=== PATIENT | female | born 2000 | race Caucasian/White ===

== ENCOUNTER 2023-07-09 01:23 | Inpatient (IN) | payer BC, SELFPAY ==
[2023-07-09] VITALS (15 sets, daily range): BP systolic 86–120; BP diastolic 42–67; PULSE 91–125; RESP 16–25; TEMP 37.1–39.4; O2SAT 96–100; BMI 20.7; BMI 25.0
--- NOTE | ~2023-07-09 | CT_ITS ---
EXAMINATION: CT ANGIOGRAM OF THE CHEST WITH AND WITHOUT CONTRAST (CT PULMONARY ANGIOGRAM FOR PE) CLINICAL INFORMATION: Reason for Exam tachycardia, elevated ddimer chest pain COMPARISON: Same day chest radiograph TECHNIQUE: Prior to contrast administration, noncontrast localization images were obtained. Subsequently, multidetector volumetric imaging was performed from the thoracic inlet to below the diaphragms following the administration of 80 mL Omnipaque 350 intravenous contrast. No contrast reaction reported Sagittal, coronal, and MIP oblique sagittal reformatted images were obtained on the CT workstation, uploaded to PACS, and reviewed. This CT examination was performed using dose optimization techniques as appropriate, variously including the following: *Automated exposure control *Adjustment of mA and/or kV according to patient size (this includes techniques or standardized protocols for targeted exams where dose is matched to indication/reason for exam; i.e. extremities or head) *Use of iterative reconstruction technique Total exam dose-length product 233 mGy-cm FINDINGS: QUALITY OF STUDY/CONTRAST BOLUS: Satisfactory. PULMONARY ARTERIES: Main pulmonary arteries are not enlarged. There is a small intraluminal filling defect located at right lower lobe pulmonary artery branch point which is seen over multiple coronal images, 15:76-81, see bruner image 80. LUNGS: Trachea and bronchi are patent. Bibasilar atelectasis, left greater than right. No consolidation/air bronchograms or suspicious pulmonary nodules. PLEURA: No pleural effusion or pneumothorax. MEDIASTINUM: Unremarkable thyroid. Heart is not enlarged. No ventricular bowing nor contrast reflux into the inferior vena cava. CORONARY ARTERY CALCIFICATION: None visualized on this study. CHEST WALL/AXILLA: No axillary or internal mammary lymphadenopathy. OSSEOUS STRUCTURES: Pectus excavatum. UPPER ABDOMEN: Diffuse hypoattenuation to the liver parenchyma. CT/CT angio chest PE protocol IMPRESSION: Right lower lobe pulmonary arterial filling defect suspicious for small nonocclusive thrombus. Mild atelectasis. Hepatic steatosis. VTE: positive
--- NOTE | ~2023-07-09 | XR_ITS ---
EXAMINATION: XR CHEST CLINICAL INFORMATION: Fever COMPARISON: None available. TECHNIQUE: Frontal view of the chest was obtained. FINDINGS: No significant abnormality is noted involving the heart, lungs, mediastinum, bony thorax or soft tissues. XR/XR chest 1V IMPRESSION: Unremarkable examination.
--- NOTE | ~2023-07-09 | US_ITS ---
EXAMINATION: US VENOUS WITH DOPPLER UPPER EXTREMITY, left upper extremity CLINICAL INFORMATION: Edema swelling COMPARISON: None available. TECHNIQUE: Ultrasound of the upper extremity is performed using compression sonography and color and pulse Doppler flow with assessment of augmentation of flow. There is also imaging and Doppler assessment of the jugular and subclavian veins. Spectral analysis with color-flow imaging is performed. FINDINGS: Respiratory variation, normal compression, and augmented flow are noted throughout the upper extremity including the axillary, brachial, cubital, and radial and ulnar veins. There is normal flow in the internal jugular and subclavian veins. There is no visible deep or superficial thrombophlebitis. If the patient's symptoms progress, a followup ultrasound in 5 -7 days might be of value to exclude proximal propagation from a nonvisualized distal arm vein. US/US venous duplex UE LT IMPRESSION: No DVT demonstrated in the left upper extremity
--- NOTE | ~2023-07-09 | CT_ITS ---
EXAMINATION: CT HEAD WITHOUT CONTRAST CLINICAL INFORMATION: Headache status post fall. COMPARISON: No relevant prior imaging. TECHNIQUE: Contiguous axial imaging was performed from the skull base to vertex without intravenous administration of contrast. This CT examination was performed using dose optimization techniques as appropriate, variously including the following: *Automated exposure control *Adjustment of mA and/or kV according to patient size (this includes techniques or standardized protocols for targeted exams where dose is matched to indication/reason for exam; i.e. extremities or head) *Use of iterative reconstruction technique DLP: 659 mGy-cm FINDINGS: There is no acute intracranial hemorrhage or abnormal extra axial collection. No intracranial mass effect or midline shift. Lateral and third ventricles are normal. No hydrocephalus. Cristobal-white matter differentiation is preserved and there is no evidence of acute territorial infarct. The calvarium and skull base are intact. Mastoid air cells and middle ear cavities are well aerated. No active paranasal sinus disease. CT/CT head/brain wo IV con IMPRESSION: Normal CT scan of the head.
--- NOTE | ~2023-07-09 | US_ITS ---
EXAMINATION: US VENOUS ULTRASOUND WITH DOPPLER LOWER EXTREMITY, BILATERAL CLINICAL INFORMATION: Pulmonary embolism COMPARISON: None available. TECHNIQUE: Ultrasound of the deep veins is performed from the hip to the calf with compression sonography and color and pulse Doppler assessment. Spectral analysis with color-flow imaging is performed. FINDINGS: RIGHT: There is normal venous compression and respiratory variation and augmented flow. The visualized common femoral vein, superficial femoral vein, profunda femoral vein, popliteal vein, and the trifurcation region shows no evidence of deep venous thrombosis. There is no significant popliteal fossa cyst. LEFT: There is normal venous compression and respiratory variation and augmented flow. The visualized common femoral vein, superficial femoral vein, profunda femoral vein, popliteal vein, and the trifurcation region shows no evidence of deep venous thrombosis. There is no significant popliteal fossa cyst. If the patient's symptoms persist, followup ultrasound in 5 days 7 days might be of value to exclude proximal propagation from a non-visualized calf vein. US/US venous duplex LE BI IMPRESSION: No DVT demonstrated in the bilateral lower extremity.
[2023-07-09 02:10] LABS: Basophils Percent Auto 0.2 % (0-2); Hemoglobin 12.4 g/dl (12.0-16.0); Imm Gran Abs Auto 0.03 X10*3/uL (0.00-0.03); Imm Gran Pct Auto 0.3 % (0.0-0.4); Lymphocytes Absolute Auto 0.9 X10*3/uL (1.2-4.9); MANUAL DIFF FLAG NO; Mean Corpuscular HGB Conc 33.5 g/dl (31.0-35.0); Mean Corpuscular Hemoglobin 29.5 pg (27.0-33.0); Mean Corpuscular Volume 88.1 fL (80.0-98.0); Mean Platelet Volume 11.1 fL (9.4-12.3); Monocytes Absolute Auto 0.9 X10*3/uL (0.1-1.2); Monocytes Percent Auto 8.3 % (2-11); Neutrophils Absolute Auto 8.8 x10*3/uL (2.0-8.3); Neutrophils Percent Auto 83.2 % (45-73); Platelet Count 174 X10*3/uL (160-400); White Blood Count 10.6 X10*3/uL (4.8-10.8)
[2023-07-09 02:27] LABS: Alanine Aminotransferase 17 U/L (0-31); Alkaline Phosphatase 69 U/L (39-117); Anion Gap 11 (12-20); Aspartate Amino Transferase 13 U/L (5-31); Bilirubin Total 0.6 mg/dL (0.0-1.0); Blood Urea Nitrogen 6 mg/dL (9-16); Calcium 8.3 mg/dL (8.4-10.2); Carbon Dioxide 23 mmol/L (22-29); Chloride 105 mmol/L (96-108); Creatinine Clr Calc Pharmacy 109.7; Estimated Glomerular Filt Rate > 60; Glucose Random 137 mg/dL (60-115); Potassium 3.6 mmol/L (3.3-5.1); Sodium 135 mmol/L (135-145); Total Protein 6.6 g/dL (6.5-8.0)
[2023-07-09 02:32] LABS: COVID-19 Test Negative (Negative); IDNOW Serial# 08D9AD1C; IDNOW Serial# 152EDE1D; Influenza A Negative (Negative); Influenza B2 Negative (Negative)
--- NOTE | 2023-07-09 03:10 | ED.GENADULT ---
HPI - General Adult General Chief complaint: Fall Stated complaint: DIZZINESS, NAUSEA, HEADACHE Time Seen by Provider: 07/09/23 02:07 Source: patient Mode of arrival: ambulatory Limitations: no limitations History of Present Illness HPI narrative: Patient's history of familial Mediterranean fever been having fever body aches for last 2 days not eating or drinking much was feeling dizzy getting into the bed fell hitting her head against a wall with nausea no vomiting reporting pain to the head 8 Related Data Allergies Allergy/AdvReac Type Severity Reaction Status Date / Time acetaminophen AdvReac Unknown Verified 07/09/23 01:45 Review of Systems Review of Systems: Yes all other systems are reviewed and are negative [facility] Past Medical History Medical History (Updated 07/09/23 @ 07:17 by Wicho Pedro MD) Familial Mediterranean fever Social History Social History Smoked in Last 30 Days: No Use of substances other than those prescribed or required for medical reasons: No Advance Directives: No Advance Directives Information Provided: No Patient : No Physical Exam ED Vital Signs: Vital Signs - 24 hr 07/09/23 01:35 07/09/23 01:56 07/09/23 04:28 Temperature 100.7 F H 101.1 F H Pulse Rate 122 H 118 H Respiratory Rate 19 20 Blood Pressure 116/67 92/51 L Pulse Oximetry 97 96 Oxygen Delivery Method Room Air Room Air 07/09/23 06:12 07/09/23 06:13 07/09/23 06:13 Temperature Pulse Rate 102 H 122 H 125 H Respiratory Rate Blood Pressure 91/46 L 102/61 88/54 L Pulse Oximetry Oxygen Delivery Method BMI result Body Mass Index 20.7 Appearance: Alert. Oriented X3. No acute distress. Febrile Eyes: No pallor or icterus ENT: Pharynx normal. Oral Mucosa moist Neck: Normal inspection. Neck supple. CVS: Normal heart rate and rhythm. Pulses normal. Respiratory: No respiratory distress. Equal air entry bilateral, no wheezing/rales/rhonchi Abdomen: Soft and nontender. Bowel sounds are present, Skin: Skin warm and dry. Normal skin color. Normal skin turgor. Extremities: No lower extremity edema. No calf tenderness Neuro: Oriented X 3. No motor deficit. Medications Administered Discontinued Medications Generic Name Dose Route Start Last Admin Trade Name Freq PRN Reason Stop Dose Admin Sodium Chloride 1,000 mls @ 999 mls/hr 07/09/23 03:20 07/09/23 05:43 Ns IV 07/09/23 04:20 Infused .Q1H1M ONE Infusion Sodium Chloride 1,000 mls @ 999 mls/hr 07/09/23 06:03 07/09/23 06:14 Ns IV 07/09/23 07:03 999 mls/hr .Q1H1M ONE Administration Ketorolac Tromethamine 30 mg 07/09/23 03:20 07/09/23 04:01 Ketorolac Tromethamine 30 Mg/Ml Vial IVPUSH 07/09/23 03:21 30 mg ONCE ONE Administration Ondansetron HCl 4 mg 07/09/23 03:21 07/09/23 04:02 Ondansetron Hcl 4 Mg/2 Ml Vial IVPUSH 07/09/23 03:22 4 mg ONCE ONE Administration Medical Decision Making Medical Decision Making [facility] Narrative: Patient with familial Mediterranean fever with orthostatic hypotension with near syncope will continue to give IV fluids recheck orthostatics will discharge once better Differential Diagnosis Differential Diagnoses: The differential diagnosis associated with the presentation includes Vasovagal syncope/orthostatic hypotension Lab Data [facility] Lab Attestation statement: I reviewed the patient's lab results. 07/09/23 02:02 07/09/23 02:02 Labs: Lab Results 07/09/23 Range/Units 02:02 WBC 10.6 (4.8-10.8) X10*3/uL RBC 4.20 (4.20-5.50) X10*6/uL Hgb 12.4 (12.0-16.0) g/dl Hct 37.0 (37.0-47.0) % MCV 88.1 (80.0-98.0) fL MCH 29.5 (27.0-33.0) pg MCHC 33.5 (31.0-35.0) g/dl RDW 14.0 (11.0-16.0) % Plt Count 174 (160-400) X10*3/uL MPV 11.1 (9.4-12.3) fL Immature Gran % (Auto) 0.3 (0.0-0.4) % Neut % (Auto) 83.2 H (45-73) % Lymph % (Auto) 8.0 L (20-40) % [place] % (Auto) 8.3 (2-11) % Eos % (Auto) 0.0 (0-4) % Baso % (Auto) 0.2 (0-2) % Lymph # (Auto) 0.9 L (1.2-4.9) X10*3/uL [place] # (Auto) 0.9 (0.1-1.2) X10*3/uL Eos # (Auto) 0.0 (0.0-0.4) X10*3/uL Baso # (Auto) 0.0 (0.0-0.2) X10*3/uL Abs Immat Gran (auto) 0.03 (0.00-0.03) X10*3/uL Absolute Neuts (auto) 8.8 H (2.0-8.3) x10*3/uL Absolute Nucleated RBC 0.000 (0.0-0.012) X10*3/uL Nucleated RBC % (auto) 0.0 (0.0-0.2) /100WBC Sodium 135 (135-145) mmol/L Potassium 3.6 (3.3-5.1) mmol/L Chloride 105 (96-108) mmol/L Carbon Dioxide 23 (22-29) mmol/L Anion Gap 11 L (12-20) BUN 6 L (9-16) mg/dL Creatinine 0.82 (0.5-1.4) mg/dL Estim Creat Clear Calc 109.7 Estimated GFR > 60 Random Glucose 137 H (60-115) mg/dL Calcium 8.3 L (8.4-10.2) mg/dL Total Bilirubin 0.6 (0.0-1.0) mg/dL AST 13 (5-31) U/L ALT 17 (0-31) U/L Alkaline Phosphatase 69 (39-117) U/L Total Protein 6.6 (6.5-8.0) g/dL Albumin 4.0 (3.5-5.0) g/dL COVID-19 ([facility]IN) Negative (Negative) COVID-19 Clin Com See Note Influenza Type A (EMILY) Negative (Negative) Influenza Type B (EMILY) Negative (Negative) Influenza A & B Note See Note Discharge Plan Discharge Clinical Impression: Near syncope, Familial Mediterranean fever Patient Disposition: Still a Patient
[2023-07-09] MEDS: 0.9 % Sodium Chloride 1,000 ML 999 ML IV ×3 (04:01→07:31)
[2023-07-09] MEDS: Ketorolac Tromethamine 30 MG/ML VIAL IVPUSH (04:01)
[2023-07-09] MEDS: ondansetron HCL 4 MG/2 ML VIAL IVPUSH (04:02)
--- NOTE | 2023-07-09 07:29 | PC.NURSE ---
this RN resumed care of pt a this time. a&ox4. pt sinus tachy on the cardiac monitor technician. hypotensive. low grade temp of 99.2 orally. pt verbalizing 5/10 posterior headache at this time. pt also c/o lightheadedness/dizziness. denies change in vision. pt hot to the touch and diaphoretic. c/o chills. no sob/wob noted. respirations even and unlabored. IVF continues to infuse at this time. pt aware of urine sample that is needed. plan of care ongoing. call castillo placed within reach.
--- NOTE | 2023-07-09 07:38 | ECG_ITS ---
Test Reason : tachy Blood Pressure : / mmHG Vent. Rate : 126 BPM Atrial Rate : 126 BPM P-R Int : 088 ms QRS Dur : 064 ms QT Int : 288 ms P-R-T Axes : 045 065 -46 degrees QTc Int : 417 ms Sinus tachycardia with short MI Low voltage QRS T wave abnormality, consider anterior ischemia Abnormal ECG No previous ECGs available Referred By: Shanell Bowen Electronically Signed By:RANI BLANCHARD
[2023-07-09] MEDS: Morphine Sulfate 2 MG/ML CARTRIDGE IVPUSH (09:08)
--- NOTE | 2023-07-09 09:09 | PC.NURSE ---
pt still verbalizing headache and feeling lightheaded/dizzy w/ movement. pt remains sinus tachy on the monitor. provider aware. labs/cultures obtained by this RN/tech. medication administered per provider order. pt waiting to go to CT at this time. plan of care ongoing. call castillo placed within reach.
--- NOTE | 2023-07-09 09:16 | PC.NURSE ---
xray bedside at this time.
[2023-07-09 09:23] LABS: D Dimer High Sensitivity 315 NG/ML
[2023-07-09 09:33] LABS: Troponin-I High Sensitivity 6.6 ng/L (<3.5-17.0)
[2023-07-09 09:47] LABS: Procalcitonin 0.17 ng/mL
--- NOTE | 2023-07-09 10:14 | PC.NURSE ---
pt verbalizing pain level decreased post medication administration. pt remains sinus tachy on the media monitor. pt resting in no apparent distress w/ the lights dimmed waiting to go to CT at this time. call castillo placed within reach.
[2023-07-09 10:23] LABS: HCG Quantitative < 2 mIU/mL
[2023-07-09 10:55] LABS: Appearance Urine Clear; Color Urine Yellow; Glucose Urine UA Negative (Negative); Leukocyte Esterase Urine Small (1+) (Negative); Nitrite Urine Negative (Negative); PH 5.5 (5.0-9.0); UMIC TRIGGER UACC YES; Urine Blood Negative (Negative); Urine Ketones 15 mg/dL (Negative); Urine Protein Negative (Neg-Trace)
[2023-07-09 10:56] LABS: UPreg QC Valid YES; Urine Pregnancy NEGATIVE (NEGATIVE)
[2023-07-09 11:06] LABS: Bacteria Urine Trace (None Seen); Hyaline Casts Urine 0-2 /LPF (0-2); RBC Urine 0-2 /HPF (0-2); Squamous Epithelial Cell Urine 0-2 /HPF (0-2); UACC Culture Trigger YES; WBC Urine 0-5 /HPF (0-5)
[2023-07-09] MEDS: iohexoL 350 MG/ML 100 ML INFUS..BTL IV (11:06)
[2023-07-09] MEDS: Enoxaparin Sodium 80 MG/0.8 ML SYRINGE SUBCUT (12:37)
[2023-07-09 12:57] LABS: INTERNATIONAL NORM RATIO 1.4 (0.9-1.1); Prothrombin Time 16.7 SEC (11.1-13.3)
[2023-07-09 13:00] LABS: Partial Thromboplastin Time 32.1 SEC (26.0-36.8)
[2023-07-09] MEDS: Ibuprofen 800 MG TABLET PO (13:01)
--- NOTE | 2023-07-09 13:02 | PC.NURSE ---
pt aware of CT results at this time. pt remaining sinus tachy on the monitoring and evaluation advisor. updated oral temp displaying 103 - ibuprofen administered per provider order. effectiveness pending. pt speaking w/ hospitalist at this time. plan of care ongoing.
[2023-07-09 13:17] LABS: C Reactive Protein 4.31 mg/dL (< or = 0.50)
[2023-07-09 13:26] LABS: Erythrocyte Sedimentation Rate 12 MM/HR (0-20)
--- NOTE | 2023-07-09 13:48 | PHA.MEDREC ---
Pharmacy Consult ? Medication Reconciliation Pharmacy has completed the medication reconciliation. Patient reported meds. Cindy Ortez, SamD
--- NOTE | 2023-07-09 15:18 | PM.IMHP ---
History of Present Illness Date of Service: 07/09/23 Attending physician on admission: [facility] Chief Complaint: fall, head strike, dizziness 22 year old female with history of familial Mediterranean fever, celiac disease, anxiety, ADHD presents to the ED earlier today from [facility] where she has been studying due to syncope with head strike. The patient states that she was diagnosed with familial Mediterranean fever at age 8 and had been well-controlled on colchicine until about 2 cespedes ago when she began experiencing monthly flare-ups of FMF symptoms. She states she will have fevers up to 103 with associated myalgias (diffuse but most pronounced in abd, legs, low back, and neck), sharp occipital headaches. She follows with Dr. Hudson at [facility] and reports colchine was increased to 0.6mg TID about 8 months ago without improvement in symptoms. No further medication changes made. She states during these episodes will experience positional lightheadedness and has sustained several falls, most recently very early this morning while in her dorm. Endorses head strike but no LOC. No associated visual changes, sob, palpitations, chest pain, diarrhea, n/v, urinary symptoms, cough, sore throat, congestion, rigors. No sick contacts. No history of seizures. Since arrival, pt has been intermittently febrile to 103 with some improvement with ibuprofen, tachycardic to the 120s. Positive for orthostatic hypotension. No leukocytosis. Renal function normal, lytes normal. Lactic acid 1.0. CRP 4.31, ESR 12. PT 16.7, INR 1.4, DDimer 315. PCT 0.17, beta hcg neg. Troponin below detectable limit. UA unremarkable. Negative for COVID-19, influenza. Full viral respiratory panel pending. CXR unremarkable. Head CT negative for any acute intracranial abnormality. CTA chest shows right lower lobe pulmonary arterial filling defect suspicious for small nonocclusive thrombus. There is also mild atelectasis and hepatic steatosis. EKG shows sinus tachycardia, rate 126 with T-wave inversions noted in V3-V5. No ST/depressions. In the ED, given ketorolac and ibuprofen for fevers, IV morphine, 4 mg ondansetron, IV NS, and 80 mg enoxaparin. NO recent travel or OCPs Review of Systems Review of Systems: General: No malaise, unintentional weight loss. +fevers HEENT: No blurred vision, diplopia. No sore throat, nasal congestion, rhinorrhea, sinus pain, ear pain Cardiovascular: No chest pain, palpitations, or leg edema. +lightheadedness Respiratory: No shortness of breath, wheezing, cough GI: No abdominal pain, nausea, vomiting, diarrhea, constipation, melena, hematochezia : No dysuria, hematuria, increased urinary frequency, decreased urinary output MSK: No back pain. +myalgia Neuro: No headaches, weakness, paresthesias Skin: No rashes or lesions [facility] Medical History (Updated 07/10/23 @ 14:14 by Russel Sultana MD) Anxiety Familial Mediterranean fever Social History Household Members: Other Housing: House Patient Tobacco Use Status: Never used Tobacco Smoked in Last 30 Days: No Use of substances other than those prescribed or required for medical reasons: Yes Substance Use Type: Marijuana Substance Use Frequency: Occasionally Last Used Substance Other:: 07/03/23 Currently Displaying Signs/Symptoms of Drug Intoxication Withdrawal: No Any prior treatment program specific to substance use: No Have you been hit, kicked, punched, or otherwise hurt by someone within the past year? If so, by whom?: No Do you feel safe in your current relationship?: Yes Is there a partner from a previous relationship who is making you feel unsafe now?: No Are you made to feel afraid or neglected: No Advance Directives: No Advance Directives Information Provided: No Do you have thoughts of harming others: None Do you have a plan to hurt others: No Plan Recently lost weight without trying: No Nutrition Risks: No Nutritional Risk Patient : No : No Poor oral hygiene: No service: No Meds Allergies Allergy/AdvReac Type Severity Reaction Status Date / Time acetaminophen AdvReac Unknown Verified 07/09/23 01:45 Home Medications Medication Instructions Recorded Confirmed Last Taken Type Probiotic 1 cap PO DAILY@1130 07/09/23 07/09/23 07/08/23 History colchicine 0.6 mg tablet 0.3 mg PO BID@0000,1800 07/09/23 07/09/23 07/08/23 History colchicine 0.6 mg tablet 0.6 mg PO DAILY@1130 07/09/23 07/09/23 07/08/23 History dextroamphetamine-amphetamine 10 1 tab PO DAILY@1130 07/09/23 07/09/23 07/08/23 History mg tablet fluoxetine 10 mg tablet 15 mg PO DAILY@112907/09/23 07/09/23 07/08/23 History multivitamin 1 tab PO DAILY@1130 07/09/23 07/09/23 07/08/23 History Physical Exam Vital Signs and Narrative: Vital Signs: Last Vital Signs Temp 99.2 F 07/09/23 15:05 Pulse 106 H 07/09/23 15:05 Resp 16 07/09/23 15:05 BP 102/55 L 07/09/23 12:24 Pulse Ox 97 07/09/23 15:05 O2 Del Method Room Air 07/09/23 15:05 BMI result Body Mass Index 25.0 Constitutional - Awake and Alert, No apparent distress Eyes - PERRLA, EOMI Cardiovascular - S1S2, RRR, No edema Respiratory - Normal lung expansion, Normal respiratory effort, No respiratory distress, CTA bilaterally Gastrointestinal - mild diffuse ttp, ND; +BS; No rebound or guarding Extremities - no calf tenderness bilaterally, no swelling Skin - Warm/Dry Neurological - Alert & oriented x3, CN II-XII in tact, 5/5 strength BUE and BLE, mildly tremulous Psychological - Appropriate affect Results Labs 07/10/23 05:14 07/10/23 05:14 Labs: Laboratory Results - last 24 hr 07/09/23 07/09/23 07/09/23 02:02 09:02 09:04 MCV 88.1 MCH 29.5 MCHC 33.5 RDW 14.0 Plt Count 174 MPV 11.1 Immature Gran % (Auto) 0.3 Neut % (Auto) 83.2 H Lymph % (Auto) 8.0 L [place] % (Auto) 8.3 Eos % (Auto) 0.0 Baso % (Auto) 0.2 Lymph # (Auto) 0.9 L [place] # (Auto) 0.9 Eos # (Auto) 0.0 Baso # (Auto) 0.0 Abs Immat Gran (auto) 0.03 Absolute Neuts (auto) 8.8 H Absolute Nucleated RBC 0.000 Nucleated RBC % (auto) 0.0 ESR 12 PT INR APTT D-Dimer High Sensitivty 315 Anion Gap 11 L Estim Creat Clear Calc 109.7 Estimated GFR > 60 Random Glucose 137 H Lactic Acid 1.0 Calcium 8.3 L Total Bilirubin 0.6 AST 13 ALT 17 Alkaline Phosphatase 69 Troponin I High Sens 6.6 C-Reactive Protein 4.31 H Total Protein 6.6 Albumin 4.0 Procalcitonin 0.17 Beta HCG, Quant < 2 Urine Color Urine Appearance Urine pH Ur Specific [place] Urine Protein Urine Glucose (UA) Urine Ketones Urine Blood Urine Nitrite Ur Leukocyte Esterase Urine RBC Urine WBC Ur Squamous Epith Cells Urine Bacteria Hyaline Casts Urine Test COVID-19 ([facility]ERV[facility]) Negative COVID-19 Clin Com See Note Influenza Type A (EMILY) Negative Influenza Type B (EMILY) Negative Influenza A & B Note See Note 07/09/23 07/09/23 10:39 12:38 MCV MCH MCHC RDW Plt Count MPV Immature Gran % (Auto) Neut % (Auto) Lymph % (Auto) [place] % (Auto) Eos % (Auto) Baso % (Auto) Lymph # (Auto) [place] # (Auto) Eos # (Auto) Baso # (Auto) Abs Immat Gran (auto) Absolute Neuts (auto) Absolute Nucleated RBC Nucleated RBC % (auto) ESR PT 16.7 H INR 1.4 H APTT 32.1 D-Dimer High Sensitivty Anion Gap Estim Creat Clear Calc Estimated GFR Random Glucose Lactic Acid Calcium Total Bilirubin AST ALT Alkaline Phosphatase Troponin I High Sens C-Reactive Protein Total Protein Albumin Procalcitonin Beta HCG, Quant Urine Color Yellow Urine Appearance Clear Urine pH 5.5 Ur Specific [place] 1.010 Urine Protein Negative Urine Glucose (UA) Negative Urine Ketones 15 Urine Blood Negative Urine Nitrite Negative Ur Leukocyte Esterase Small (1+) H Urine RBC 0-2 Urine WBC 0-5 Ur Squamous Epith Cells 0-2 Urine Bacteria Trace Hyaline Casts 0-2 Urine Test NEGATIVE COVID-19 ([facility]) COVID-19 Clin Com Influenza Type A (EMILY) Influenza Type B (EMILY) Influenza A & B Note Imaging Radiologist's Impressions: Impressions Chest X-Ray 07/09/23 09:20 IMPRESSION: Unremarkable examination. Head CT 07/09/23 11:11 IMPRESSION: Normal CT scan of the head. Chest CTA 07/09/23 11:12 IMPRESSION: Right lower lobe pulmonary arterial filling defect suspicious for small nonocclusive thrombus. Mild atelectasis. Hepatic steatosis. VTE: positive Assessment and Plan (1) Pulmonary embolism: Qualifiers: Acute cor pulmonale presence: with acute cor pulmonale Chronicity: acute Pulmonary embolism type: unspecified Qualified Code(s): I26.09 - Other pulmonary embolism with acute cor pulmonale Status: Acute (2) Syncope due to orthostatic hypotension: Status: Acute (3) Familial Mediterranean fever: Status: Acute Plan 22 year old female with history of familial Mediterranean fever, celiac disease, anxiety, ADHD presents to the ED earlier today from [employer] where she has been studying due to syncope with head strike. The patient states that she was diagnosed with familial Mediterranean fever at age 8 and had been well-controlled on colchicine until about 2 cespedes ago when she began experiencing monthly flare-ups of FMF symptoms. She will be admitted for further management of Familial Mediterranean Fever flare with associated orthostatic syncope incidentally foung to have nonocculsive PE #Orthostatic syncope -related to familial Mediterranean fever flare -continue IVF -repeat orthostatics am -admit to med/tele #Familial Mediterranean Fever- acute flare -disucssed with Dr. Abbasi and RN at [facility] (follows with ) -Steroid taper: IV solumedrol/prednisone 60mg x3 days. If remains febrile, reach out to rheumatology/immunology (Dr. Abbasi) for further recommendations), otherwise taper prednisone -Continue colchicine -Outpt follow up with rheum/immunology #Right lower lobe pulmonary embolus -non-occlusive. No recent travel, no ocps -[id number] lovenox in ed. Initiate eliquis 10mg daily x 7 days, then 5mg bid -hematology consult #Mood disorder -continue home meds dvt prophyalxis- eliquis full code pt requires inpt stay at least 2 midnights due to orthostatic syncope related to FMF fevers/dehydration requiring IVF, close monitoring of vital signs Quality Stroke Does the patient have a stroke diagnosis?: No VTE Prior VTE?: No VTE Risk Level:: Medical - moderate - high VTE Device Contraindication: Treatment Not Tolerated VTE Drug Contraindication: N/A - Med Ordered
[2023-07-09 15:38] LABS: Adenovirus PCR Not Detected (Not Detect.); Bordetella parapertussis PCR Not Detected (Not Detect.); Bordetella pertussis PCR Not Detected (Not Detect.); Chlamydia pneumoniae PCR Not Detected (Not Detect.); Coronavirus 229E PCR Not Detected (Not Detect.); Coronavirus HKU1 PCR Not Detected (Not Detect.); Coronavirus NL63 PCR Not Detected (Not Detect.); Coronavirus OC43 PCR Not Detected (Not Detect.); Human metapneumovirus PCR Not Detected (Not Detect.); Influenza A PCR Not Detected (Not Detect.); Influenza B PCR Not Detected (Not Detect.); Mycoplasma pneumoniae PCR Not Detected (Not Detect.); Parainfluenza 1 PCR Not Detected (Not Detect.); Parainfluenza 2 PCR Not Detected (Not Detect.); Parainfluenza 3 PCR Not Detected (Not Detect.); Parainfluenza 4 PCR Not Detected (Not Detect.); RSV PCR Not Detected (Not Detect.); Rhino/Enterovirus PCR Not Detected (Not Detect.)
[2023-07-09 15:46] LABS: SARS-CoV-2 PCR Not Detected (Not Detect.)
[2023-07-09] MEDS: 0.9 % Sodium Chloride 1,000 ML 100 ML IVCONT ×2 (16:56→21:04)
[2023-07-09] MEDS: 0.9 % Sodium Chloride Flush 3 ML SYRINGE IVFLUSH (16:58)
[2023-07-09] MEDS: methylPREDNISolone Sod Succ 125 MG/2 ML VIAL 60 MG IVPUSH (17:00)
[2023-07-09] MEDS: Omeprazole 40 MG CAPSULE.DR PO (17:00)
--- NOTE | 2023-07-09 18:11 | PC.NURSE ---
vss and up to date aside from being hypotensive. admitting provider notified aware. NS @ 100mls/hr dc'd by admitting provider. IVF wide open as bolus at this time. will reassess BP post IVF infusion. pt denies headache. has no complaints at this time. respirations remain even and unlabored. plan of care ongoing. call castillo placed within reach.
[2023-07-09] MEDS: Colchicine 0.6 MG TABLET 0.3 MG PO (18:14)
--- NOTE | 2023-07-09 20:24 | PC.NURSE ---
IV bolus infused bp as documented. Trista VELAZCO aware; ok with bp as pt asymptomatic. pt axox4 ambulatory with steady gait. pt denies cp/sob/dizziness/n/v/d. NSR on monitor.
[2023-07-09] MEDS: Apixaban 5 MG TABLET 10 MG PO (21:03)
--- NOTE | 2023-07-09 21:08 | PC.NURSE ---
pt sitting up in bed speaking full clear sentences. nad. pt tolerated po eliquis with water. mom at bedside. call castillo within reach.
[2023-07-10] VITALS (11 sets, daily range): BP systolic 89–114; BP diastolic 47–72; PULSE 60–88; RESP 16–20; TEMP 36–37.1; O2SAT 96–99; BMI 22.9
[2023-07-10] MEDS: Colchicine 0.6 MG TABLET 0.3 MG PO ×3 (00:01→23:08)
[2023-07-10] MEDS: methylPREDNISolone Sod Succ 125 MG/2 ML VIAL 60 MG IVPUSH ×2 (05:11→17:35)
[2023-07-10] MEDS: Omeprazole 40 MG CAPSULE.DR PO (05:11)
[2023-07-10 05:55] LABS: MANUAL DIFF FLAG NO
[2023-07-10 06:00] LABS: Hematocrit 33.8 % (37.0-47.0); Hemoglobin 11.2 g/dl (12.0-16.0); Imm Gran Abs Auto 0.05 X10*3/uL (0.00-0.03); Imm Gran Pct Auto 0.6 % (0.0-0.4); Lymphocytes Absolute Auto 0.6 X10*3/uL (1.2-4.9); Lymphocytes Percent Auto 7.5 % (20-40); Mean Corpuscular HGB Conc 33.1 g/dl (31.0-35.0); Mean Corpuscular Hemoglobin 29.4 pg (27.0-33.0); Mean Corpuscular Volume 88.7 fL (80.0-98.0); Mean Platelet Volume 12.4 fL (9.4-12.3); Monocytes Absolute Auto 0.3 X10*3/uL (0.1-1.2); Monocytes Percent Auto 3.8 % (2-11); Neutrophils Absolute Auto 7.2 x10*3/uL (2.0-8.3); Neutrophils Percent Auto 88.1 % (45-73); Platelet Count 135 X10*3/uL (160-400); Red Blood Count 3.81 X10*6/uL (4.20-5.50); Red Cell Distribution Width 14.5 % (11.0-16.0); White Blood Count 8.2 X10*3/uL (4.8-10.8)
[2023-07-10 06:13] LABS: Anion Gap 9 (12-20); Blood Urea Nitrogen 4 mg/dL (9-16); Calcium 8.1 mg/dL (8.4-10.2); Carbon Dioxide 21 mmol/L (22-29); Chloride 114 mmol/L (96-108); Creatinine Clr Calc Pharmacy 137.9; Estimated Glomerular Filt Rate > 60; Glucose Random 173 mg/dL (60-115); Potassium 3.6 mmol/L (3.3-5.1); Sodium 140 mmol/L (135-145)
--- NOTE | 2023-07-10 07:22 | PC.NURSE ---
pt is alert and oriented, skin slightly pale and clammy, respirations even and unlabored, ls clear, pt denies abd pain but does have a headache 2/10, pt denies dizziness and sob, ns on the monitor and orth static vs performed pt does reports that she is vegetarian and has celiac disease
[2023-07-10] MEDS: Apixaban 5 MG TABLET 10 MG PO ×2 (08:40→20:02)
--- NOTE | 2023-07-10 09:13 | MHC.CM.PN ---
CM spoke with Patient @ [phone]. Patient is presently living in her dorm at [employer] but typically lives in a house with her Parents. Home/self care is the goal and CM has initiated and will follow for dc planning. PCP is Dr. Simone Mohamud @ [phone]. Patient's Mother will transport Patient back to her dorm at time of dc.
[2023-07-10] MEDS: 0.9 % Sodium Chloride 1,000 ML 100 ML IVCONT (09:16)
[2023-07-10] MEDS: Colchicine 0.6 MG TABLET PO (11:45)
[2023-07-10] MEDS: Amphetamine Mixed Salts 10 MG TABLET PO (11:45)
[2023-07-10 12:47] LABS: INTERNATIONAL NORM RATIO 1.9 (0.9-1.1); Prothrombin Time 22.7 SEC (11.1-13.3)
[2023-07-10] MEDS: FLUoxetine HCl Oral Solution 20 MG/5 ML SOLUTION 15 MG PO (13:04)
--- NOTE | 2023-07-10 14:08 | P.CNHO_ITS ---
Subjective - Subjective Chief complaint: CONSULT FOR: PULMONARY EMBOLISM. Patient: new to practice Consult date: 07/10/23 Requesting Physician: [facility]. Primary Care Provider: Nonstaff Physician Medical Summary: DIAGNOSIS: Pulmonary embolism. HPI - Consult Narrative Reason for consult: Consult for: Pulmonary embolism. Narrative: Rebekah Roger is a 22 year old lady, referred by Dr. Wills, on account of pulmonary embolism. She has a history of familial Mediterranean fever, celiac disease, anxiety, ADHD presented to the ED yesterday from [employer] [facility] where she has been studying, due to syncope with head strike. The patient states that she was diagnosed with familial Mediterranean fever at age 8 and had been well-controlled on colchicine until about 2 cespedes ago when she began experiencing monthly flare-ups of FMF symptoms. She states she will have fevers up to 103 with associated myalgias (diffuse but most pronounced in abd, legs, low back, and neck), sharp occipital headaches. She follows with Dr. Hudson at [facility] and reports colchine was increased to 0.6mg TID about 8 months ago without improvement in symptoms. No further medication changes made. She states during these episodes will experience positional lightheadedness and has sustained several falls, most recently very early yesterday morning while in her dorm. She tells me she had not eaten much the day before. She lost her balance and hit her head. Subsequently she was stunned. She had nausea and dizziness. She was not walking right. She called her school nurse who advised her to call the ambulance. Endorses head strike but no LOC. No associated visual changes, sob, palpitations, chest pain, diarrhea, n/v, urinary symptoms, cough, sore throat, congestion, rigors. No sick contacts. No history of seizures. Since arrival, she has been intermittently febrile to 103 with some improvement with ibuprofen, tachycardic to the 120s. Positive for orthostatic hypotension. DATA BASE: No leukocytosis. Renal function normal, lytes normal. Lactic acid 1.0. CRP 4.31, ESR 12. PT 16.7, INR 1.4, DDimer 315. PCT 0.17, beta hcg neg. Troponin below detectable limit. UA unremarkable. Negative for COVID-19, influenza. Full viral respiratory panel pending. CXR unremarkable. Head CT negative for any acute intracranial abnormality. CTA chest shows right lower lobe pulmonary arterial filling defect suspicious for small nonocclusive thrombus. There is also mild atelectasis and hepatic steatosis. EKG shows sinus tachycardia, rate 126 with T-wave inversions noted in V3-V5. No ST/depressions. In the ED, given ketorolac and ibuprofen for fevers, IV morphine, 4 mg ondansetron, IV NS, and 80 mg enoxaparin. NO recent travel or OCPs Review of Systems 2 Review of Systems: General: No malaise, unintentional weight loss. +fevers HEENT: No blurred vision, diplopia. No sore throat, nasal congestion, rhinorrhea, sinus pain, ear pain Cardiovascular: No chest pain, palpitations, or leg edema. +lightheadedness Respiratory: No shortness of breath, wheezing, cough GI: No abdominal pain, nausea, vomiting, diarrhea, constipation, melena, hematochezia : No dysuria, hematuria, increased urinary frequency, decreased urinary output MSK: No back pain. +myalgia Neuro: No headaches, weakness, paresthesias Skin: No rashes or lesions PMFSH Medical History: Anxiety Familial Mediterranean fever: She got it transmitted through her father who is from [place]. She developed onset of symptoms at the age of 3 months however it was diagnosed when she was 8. Since then she initially had cyclic symptoms once a month. She was then started on colchicine and symptoms abated. However they recurred over the past couple of years. She has had monthly episodes since then. Social History Smoked in Last 30 Days: No Use of substances other than those prescribed or required for medical reasons: No Advance Directives: No Advance Directives Information Provided: No Patient : No She is a senior at [employer]. She is graduating in September. She denies smoking cigarettes but smoked pot 3 times. She tried edible once and that triggered in attack. Occasional alcohol intake. Review of Systems - Constitutional Reports system reviewed and no additional complaints, except as documented - Eyes Reports system reviewed and no additional complaints, except as documented - ENT Reports system reviewed and no additional complaints, except as documented - Cardiovascular Reports system reviewed and no additional complaints, except as documented - Respiratory Reports no additional respiratory complaints - Gastrointestinal Reports system reviewed and no additional complaints, except as documented - Genitourinary Reports no additional female genitourinary complaints - Musculoskeletal Reports system reviewed and no additional complaints, except as documented - Integumentary/Breasts Skin/Breast: Reports no additional skin complaints - Neurologic Reports system reviewed and no additional complaints, except as documented - Psychiatric Reports system reviewed and no additional complaints, except as documented - Endocrine Reports no additional endocrine complaints - Hematologic/Lymphatic Reports system reviewed and no additional complaints, except as documented - Allergic/Immunologic Reports system reviewed and no additional complaints, except as documented Oncology Screenings - ECOG Performance Status ECOG Performance Status: 0 [facility] Medical History: Medical History (Last Updated 07/09/23 @ 15:48 by MORA Christianson) Anxiety Familial Mediterranean fever Functional capacity: independent ambulation Patient : No Social History: Social History Living Situation History: Household Members: Other Housing: House Tobacco History: Patient Tobacco Use Status: Never used Tobacco Substance Use History: Substance Use Type: Marijuana Occupation Assessmet: service: No Home Medications and Allergies Current Medications: Current Medications Amphetamine/Dextroamphetamine (Amphetamine Mixed Salts 10 Mg Tablet) 10 mg PO DAILY@1130 [facility] Last Admin: 07/10/23 11:45 Dose: 10 mg Apixaban (Apixaban 5 Mg Tablet) 10 mg PO BID [facility] Stop: 07/16/23 09:01 Last Admin: 07/10/23 08:40 Dose: 10 mg Colchicine (Colchicine 0.6 Mg Tablet) 0.3 mg PO BID@0000,1800 [facility] Last Admin: 07/10/23 00:01 Dose: 0.3 mg Colchicine (Colchicine 0.6 Mg Tablet) 0.6 mg PO DAILY@1130 [facility] Last Admin: 07/10/23 11:45 Dose: 0.6 mg Fluoxetine HCl (Fluoxetine Hcl Oral Solution 20 Mg/5 Ml Solution) 15 mg PO DAILY@1130 [facility] Last Admin: 07/10/23 13:04 Dose: 15 mg Sodium Chloride (Ns) 1,000 mls @ 100 mls/hr IVCONT .Q10H [facility] Last Admin: 07/10/23 09:16 Dose: 100 mls/hr Ibuprofen (Ibuprofen 600 Mg Tablet) 600 mg PO Q6H PRN PRN Reason: Fever or Pain, Mild (Pain Scale 1-3) Methylprednisolone Sodium Succinate (Methylprednisolone Sod Succ 125 Mg/2 Ml Vial) 60 mg IVPUSH Q12H [facility] Last Admin: 07/10/23 05:11 Dose: 60 mg Multivitamins/Vitamin C (Multivitamin Tablet) 1 tab PO DAILY@1130 [facility] Last Admin: 07/10/23 11:53 Dose: Not Given Omeprazole (Omeprazole 40 Mg Capsule.Dr) 40 mg PO DAILY@0630 [facility] Last Admin: 07/10/23 05:11 Dose: 40 mg Ondansetron HCl (Ondansetron Hcl 4 Mg/2 Ml Vial) 4 mg IVPUSH Q8H PRN PRN Reason: Nausea and Vomiting Senna (Sennosides 8.6 Mg Tablet) 17.2 mg PO BEDTIME PRN PRN Reason: Constipation Sodium Chloride (0.9 % Sodium Chloride Flush 3 Ml Syringe) 3 ml IVFLUSH QSHIFT [facility] Last Admin: 07/10/23 09:06 Dose: Not Given Home Medications Medication Instructions Recorded Confirmed Type Probiotic 1 cap PO DAILY@112907/09/23 07/09/23 History colchicine 0.6 mg tablet 0.3 mg PO BID@0000,1800 07/09/23 07/09/23 History colchicine 0.6 mg tablet 0.6 mg PO DAILY@112907/09/23 07/09/23 History dextroamphetamine-amphetamine 10 1 tab PO DAILY@112907/09/23 07/09/23 History mg tablet fluoxetine 10 mg tablet 15 mg PO DAILY@112907/09/23 07/09/23 History multivitamin 1 tab PO DAILY@112907/09/23 07/09/23 History Allergies Allergy/AdvReac Type Severity Reaction Status Date / Time acetaminophen AdvReac Unknown Verified 07/09/23 01:45 Physical Exam Vital signs: Vital Signs Temp 96.8 F 07/10/23 11:47 Pulse 67 07/10/23 11:47 Resp 20 07/10/23 11:47 BP 100/61 07/10/23 11:47 Pulse Ox 97 07/10/23 11:47 O2 Del Method Room Air 07/10/23 11:47 Intake & Output 07/09/23 07/10/23 07/10/23 18:59 06:59 18:59 Intake Total 2000 / 4000 2000 / 4000 Balance 2000 / 4000 2000 / 4000 Intake: Intake, IV Amount 1999 / 4000 2000 / 4000 0.9 % Sodium Chloride 1,000 ml 1999 / 1999 @ 999 mls/hr IV .Q1H1M [facility] Rx#: [id number] 0.9 % Sodium Chloride 1,000 ml 2000 / 2000 @ 100 mls/hr IVCONT .Q10H [facility] Rx#:[id number] Other: Last Bowel Movement 07/08/23 Weight 76.7 kg 70.5 kg [place] Weight in Grams [id number] Weight 70.5 kg - Constitutional Present: no acute distress Hem/Onc Consult Result - Labs CBC & Chem 7: 07/10/23 05:14 07/10/23 05:14 Labs: Short CBC 07/10/23 Range/Units 05:14 WBC 8.2 (4.8-10.8) X10*3/uL Hgb 11.2 L (12.0-16.0) g/dl Hct 33.8 L (37.0-47.0) % Plt Count 135 L (160-400) X10*3/uL BMP 07/10/23 05:14 Sodium 140 Potassium 3.6 Chloride 114 H Carbon Dioxide 21 L BUN 4 L Creatinine 0.68 Calcium 8.1 L Assessment and Plan Patient Active problem list reviewed?: Yes (1) Pulmonary embolism Status: Acute Assessment and plan: 22 year old lady presents from [facility] on account of a syncopal episode. CTA from yesterday revealed: Right lower lobe pulmonary arterial filling defect suspicious for small nonocclusive thrombus. Mild atelectasis. Hepatic steatosis. PLAN: I will proceed with ultrasound of the lower extremities to look for a source of embolism: Negative. She complains of swelling of her left upper extremity, will check ultrasound of that as well: Negative. Would continue on Eliquis for now. Hyper-coagulable workup on the outpatient basis. I will follow in Heme-Onc office as outpatient. Thank you, Addendum: Ultrasound of the legs revealed: No DVT demonstrated in the bilateral lower extremity. - Time Spent With Patient Time Spent with Patient (in minutes): 30
--- NOTE | 2023-07-10 16:19 | P.PNIM_ITS ---
Subjective Subjective Date of Service: 07/11/23 Interval History: Follow-up on a flare of Mediterranean fever, orthostatic hypotension, and pulmonary embolism (PE). No fever was observed overnight, and orthostatic symptoms have improved. Physical Exam 2 Vital Signs: Vital Signs: Last Vital Signs Temp 97.8 F 07/10/23 15:50 Pulse 88 07/10/23 15:50 Resp 18 07/10/23 15:50 BP 104/59 L 07/10/23 15:50 Pulse Ox 97 07/10/23 15:50 O2 Del Method Room Air 07/10/23 15:50 BMI result Body Mass Index 22.9 General: AO X 3, no acute distress Resp: CTA bilateral CVS: S1,S2,RRR GI: +BS, NT, no distention Skin: No rash Neuro: motor grossly intact Psych: appropriate affect Objective Data Active Medications Amphetamine/Dextroamphetamine (Amphetamine Mixed Salts 10 Mg Tablet) 10 mg PO DAILY@1130 [facility] Last Admin: 07/10/23 11:45 Dose: 10 mg Documented By: ALVARO Apixaban (Apixaban 5 Mg Tablet) 10 mg PO BID [facility] Stop: 07/16/23 09:01 Last Admin: 07/10/23 08:40 Dose: 10 mg Documented By: MACK Colchicine (Colchicine 0.6 Mg Tablet) 0.3 mg PO BID@0000,1800 [facility] Last Admin: 07/10/23 00:01 Dose: 0.3 mg Documented By: ED Colchicine (Colchicine 0.6 Mg Tablet) 0.6 mg PO DAILY@1130 [facility] Last Admin: 07/10/23 11:45 Dose: 0.6 mg Documented By: ALVARO Fluoxetine HCl (Fluoxetine Hcl Oral Solution 20 Mg/5 Ml Solution) 15 mg PO DAILY@1130 [facility] Last Admin: 07/10/23 13:04 Dose: 15 mg Documented By: ALVARO Ibuprofen (Ibuprofen 600 Mg Tablet) 600 mg PO Q6H PRN PRN Reason: Fever or Pain, Mild (Pain Scale 1-3) Methylprednisolone Sodium Succinate (Methylprednisolone Sod Succ 125 Mg/2 Ml Vial) 60 mg IVPUSH Q12H [facility] Last Admin: 07/10/23 05:11 Dose: 60 mg Documented By: ED Multivitamins/Vitamin C (Multivitamin Tablet) 1 tab PO DAILY@1130 [facility] Last Admin: 07/10/23 11:53 Dose: Not Given Documented By: ALVARO Non-Admin Reason: not gluten free per pharmacist Omeprazole (Omeprazole 40 Mg Capsule.) 40 mg PO DAILY@0630 [facility] Last Admin: 07/10/23 05:11 Dose: 40 mg Documented By: ED Ondansetron HCl (Ondansetron Hcl 4 Mg/2 Ml Vial) 4 mg IVPUSH Q8H PRN PRN Reason: Nausea and Vomiting Senna (Sennosides 8.6 Mg Tablet) 17.2 mg PO BEDTIME PRN PRN Reason: Constipation Sodium Chloride (0.9 % Sodium Chloride Flush 3 Ml Syringe) 3 ml IVFLUSH QSHIFT [facility] Last Admin: 07/10/23 16:13 Dose: Not Given Documented By: ALVARO Non-Admin Reason: Previously Administered Labs 07/10/23 05:14 07/10/23 05:14 Labs: Laboratory Results - last 24 hr 07/10/23 07/10/23 05:14 12:28 MCV 88.7 MCH 29.4 MCHC 33.1 RDW 14.5 Plt Count 135 L MPV 12.4 H Immature Gran % (Auto) 0.6 H Neut % (Auto) 88.1 H Lymph % (Auto) 7.5 L Karnes % (Auto) 3.8 Eos % (Auto) 0.0 Baso % (Auto) 0.0 Lymph # (Auto) 0.6 L Karnes # (Auto) 0.3 Eos # (Auto) 0.0 Baso # (Auto) 0.0 Abs Immat Gran (auto) 0.05 H Absolute Neuts (auto) 7.2 Absolute Nucleated RBC 0.000 Nucleated RBC % (auto) 0.0 PT 22.7 H D INR 1.9 H Anion Gap 9 L Estim Creat Clear Calc 137.9 Estimated GFR > 60 Random Glucose 173 H Calcium 8.1 L Microbiology Microbiology Results: Microbiology 07/09/23 09:02 Blood Culture - Preliminary Blood - Venous No growth after 24 hours. 07/09/23 09:04 Blood Culture - Preliminary Blood - Venous No growth after 24 hours. 07/09/23 Unknown Urine Culture - Final Urine clean catch - Urine ko top Assessment and Plan (1) Pulmonary embolism: Status: Acute (2) Syncope due to orthostatic hypotension: Status: Acute (3) Orthostatic hypotension: Status: Acute (4) Familial Mediterranean fever: Status: Acute Plan 22 year old female with history of familial Mediterranean fever, celiac disease, anxiety, ADHD presents to the ED earlier today from [facility] where she has been studying due to syncope with head strike. The patient states that she was diagnosed with familial Mediterranean fever at age 8 and had been well- controlled on colchicine until about 2 cespedes ago when she began experiencing monthly flare-ups of FMF symptoms. She will be admitted for further management of Familial Mediterranean Fever flare with associated orthostatic syncope incidentally foung to have nonocculsive PE #Orthostatic syncope -related to familial Mediterranean fever flare -improved with IV #Familial Mediterranean Fever- acute flare -Fevers resolved -discussed with our local business support associate and local business support associate and ok with steroid and they recommend outpatient follow up for possible med adjustment but to continue colchicine for now #Right lower lobe pulmonary embolus -non-occlusive. No recent travel, no ocps -[id number] lovenox in ed. Initiate eliquis 10mg bid x 7 days, then 5mg bid -hematology consult--recommend US of LE #Mood disorder -continue home meds dvt prophyalxis- eliquis full code need for inpatiene: management of acute acute flare of Mediterranean fever Quality Stroke Does the patient have a stroke diagnosis?: No VTE Prior VTE?: No VTE Risk Level:: Medical - moderate - high VTE Device Contraindication: Treatment Not Tolerated VTE Drug Contraindication: N/A - Med Ordered
[2023-07-10] MEDS: 0.9 % Sodium Chloride Flush 3 ML SYRINGE IVFLUSH (20:02)
[2023-07-11 04:00] VITALS: BP 93/52; PULSE 78; RESP 16; TEMP 36.8; O2SAT 98
[2023-07-11] MEDS: methylPREDNISolone Sod Succ 125 MG/2 ML VIAL 60 MG IVPUSH (04:59)
[2023-07-11] MEDS: Omeprazole 40 MG CAPSULE.DR PO (05:00)
[2023-07-11 07:41] VITALS: BP 103/64; PULSE 74; RESP 18; TEMP 36.3; O2SAT 97
[2023-07-11] MEDS: Apixaban 5 MG TABLET 10 MG PO (09:06)
[2023-07-11] MEDS: 0.9 % Sodium Chloride Flush 3 ML SYRINGE IVFLUSH (09:07)
--- NOTE | 2023-07-11 10:43 | PM.DS ---
DS: Providers Provider Date of Service: 07/11/23 Date of admission: 07/09/23 16:00 Primary care physician: Simone Mohamud Consults: 07/09/23 16:00 Consult to Hematology / Oncology Routine Consulting Provider: Russel Sultana Reason for consultation: unprovoked pe DS: Diagnosis Discharge Diagnosis (1) Pulmonary embolism: Status: Acute (2) Syncope due to orthostatic hypotension: Status: Acute (3) Orthostatic hypotension: Status: Acute (4) Familial Mediterranean fever: Status: Acute DS: Summary Hospital Course Hospital Course: admission hpi Chief Complaint: fall, head strike, dizziness 22 year old female with history of familial Mediterranean fever (FMF), celiac disease, anxiety, ADHD presents to the ED earlier today from [place] where she has been studying due to syncope with head strike. The patient states that she was diagnosed with familial Mediterranean fever at age 8 and had been well-controlled on colchicine until about 2 cespedes ago when she began experiencing monthly flare-ups of FMF symptoms. She states she will have fevers up to 103 with associated myalgias (diffuse but most pronounced in abd, legs, low back, and neck), sharp occipital headaches. She follows with Dr. Hudson at [facility] and reports colchine was increased to 0.6mg TID about 8 months ago without improvement in symptoms. No further medication changes made. She states during these episodes will experience positional lightheadedness and has sustained several falls, most recently very early this morning while in her dorm. Endorses head strike but no LOC. No associated visual changes, sob, palpitations, chest pain, diarrhea, n/v, urinary symptoms, cough, sore throat, congestion, rigors. No sick contacts. No history of seizures. Since arrival, pt has been intermittently febrile to 103 with some improvement with ibuprofen, tachycardic to the 120s. Positive for orthostatic hypotension. No leukocytosis. Renal function normal, lytes normal. Lactic acid 1.0. CRP 4.31, ESR 12. PT 16.7, INR 1.4, DDimer 315. PCT 0.17, beta hcg neg. Troponin below detectable limit. UA unremarkable. Negative for COVID-19, influenza. Full viral respiratory panel pending. CXR unremarkable. Head CT negative for any acute intracranial abnormality. CTA chest shows right lower lobe pulmonary arterial filling defect suspicious for small nonocclusive thrombus. There is also mild atelectasis and hepatic steatosis. EKG shows sinus tachycardia, rate 126 with T-wave inversions noted in V3-V5. No ST/depressions. In the ED, given ketorolac and ibuprofen for fevers, IV morphine, 4 mg ondansetron, IV NS, and 80 mg enoxaparin. NO recent travel or OCPs hospital course: Patient with a known history of FMF, experiencing flares associated with fever, dizziness, falls/orthostatic syncope, presented with fever, tachycardia, syncope with head strike, and was found to have orthostatic hypotension. Additional workup included a CT of the head, which was normal. A CT of the chest was also performed due to tachycardia, elevated D-dimer (315), and tachycardia in 120s, but no hypoxia was observed, revealing a right lower lobe pulmonary arterial filling defect suspicious for a small nonocclusive thrombus. She was administered Lovenox starting in the ED and subsequently initiated on Eliquis with a loading dose of 10 mg twice daily for 7 days, and to follow by 5 mg twice daily. She was evaluated by a home comfort advisor (Dr. Sultana), who recommended anticoagulation with eliquis, outpatient follow-up for a hypercoagulable workup. It is worth noting that she underwent ultrasound of both lower extremities, which showed negative results for DVT. Additionally, she underwent ultrasound of the left arm due to some swelling believed to be related to IVF, which also yielded negative result. Regarding FMF with orthostatic hypotension, she was hydrated with IV fluids, repeat orthostatic testing was unremarkable, fever was treated with Motrin, and she was administered steroid (Solumedrol) following discussions with our local population health manager and her population health manager in [place]. It was deemed appropriate for short-term steroid use, and she was advised to follow up with them in [place] for possible medication adjustment, while continuing Colchicine in the meantime. She will be discharged with a prednisone taper. Time Attestation Discharge coordination time: Greater than 30 minutes Quality: Safe Use of Opioids Does Pt have an Active Cancer Diagnosis on the Problem List?: No Quality: Stroke Does the patient have a stroke diagnosis?: No Physical Exam Vital Signs: Vital Signs: Selected Entries 07/11/23 07:41 Temperature 97.3 F Pulse Rate 74 Respiratory Rate 18 Blood Pressure 103/64 Pulse Oximetry 97 DS: Data Data Completed and Pending Labs on day of discharge: Laboratory Results - last 24 hr 07/10/23 12:28 PT 22.7 H D INR 1.9 H Preliminary micro results at discharge 07/09/23 09:02 Blood Culture - Preliminary Blood - Venous No growth after 24 hours. 07/09/23 09:04 Blood Culture - Preliminary Blood - Venous No growth after 24 hours. Discharge Plan Discharge Anticipated Discharge Date/Time: 07/11/23 10:38 Patient Disposition: Home, Self-Care Discharge Diagnosis: Flare of Familial Mediterranean Fever, pulmonary embolism Referrals: Russel Sultana MD [Physician] - 1 Week Discharge Medications: New prednisone 10 mg tablet See Taper PO DIRECTED Qty: 18 0RF Taper: Prednisone 40 mg daily for 2 Days and 0 Hour 30 mg daily for 2 Days and 0 Hour 20 mg daily for 2 Days and 0 Hour Rx Instructions: see taper instructions Eliquis DVT-PE Treat 30D Start 5 mg (74 tabs) tablets,dose pack See Rx Instructions .ROUTE .COMPLEX Qty: 74 0RF Rx Instructions: Take 2 tabs twice daily for 6 days, then take 1 tab twice daily thereafter Continued multivitamin Tablet 1 tab PO DAILY@1130 dextroamphetamine-amphetamine 10 mg tablet 1 tab PO DAILY@1130 fluoxetine 10 mg tablet 15 mg PO DAILY@1130 colchicine 0.6 mg tablet 0.6 mg PO DAILY@1130 colchicine 0.6 mg tablet 0.3 mg PO BID@0000,1800 Probiotic 1 cap PO DAILY@1130 Discharge Orders: Discharge Order (Routine); Ordered 07/11/23 Ordered By: Brijesh Wills Diet: Advance to usual diet Activity on Discharge: As tolerated Stand Alone Forms: Patient Portal Discharge page, Work/School Release Care Plan Goals: Recovery from flare of Familial Mediterenean Fever (FMF) with orthostatic hypOtension and newl diagnosed pulmonary embolism Health Concerns: pulmonary embolism FMF flare Orthostatic hypotension Plan of Treatment: Take Prednisone as directed, call your population health manager as recommended and follow up with your doctor Take Eliquis as directed to treat blood clot in lung Follow up with Dr. Sultana for hypercoagulable wok up Assessment: see above
--- NOTE | 2023-07-11 10:47 | MHC.CM.PN ---
Pt is medically cleared for D/C home today, self-care, pts mother to transport.
[2023-07-11 11:00] VITALS: BP 123/65; PULSE 82; RESP 18; TEMP 36.4; O2SAT 97
[2023-07-11] MEDS: Colchicine 0.6 MG TABLET PO (11:06)
[2023-07-11] MEDS: FLUoxetine HCl Oral Solution 20 MG/5 ML SOLUTION 15 MG PO (11:06)
[2023-07-11] MEDS: Amphetamine Mixed Salts 10 MG TABLET PO (11:07)
== END 2023-07-11 13:00 | disposition home or self-care (01) | DRG 346 ==
LOC: HO.ED 12:03 → HO.EDOVER 16:20 → HO.IMC 07-10 08:18
PROVIDERS: Internal Medicine; Admitting Provider Physician Assistant; Emergency Provider Emergency Medicine; PCP Physician Assistant; Visit Provider Internal Medicine
DX: M04.1 Periodic fever syndromes (principal); I26.09 Other pulmonary embolism with acute cor pulmonale; K76.0 Fatty (change of) liver, not elsewhere classified; K90.0 Celiac disease; I95.1 Orthostatic hypotension; F39 Unspecified mood [affective] disorder; J98.11 Atelectasis; Z20.822 Contact with and (suspected) exposure to COVID-19; Z79.899 Other long term (current) drug therapy
CPT/HCPCS: 36415; 70450; 71045; 71275; 80048; 80053; 81001; 81025; 83605; 84145; 84484; 84702; 85025; 85379; 85610; 85652; 85730; 86140; 87040; 87086; 87502; 87633; 87635; 93005; 93970; 93971; 99285; J1650; J1885; J2270; J2405; J2930; Q9967

== ENCOUNTER → 2023-07-09 07:38 | Outpatient (BNV) | payer BC, SELFPAY | PROVIDERS: Admitting Provider Physician Assistant; Emergency Provider Emergency Medicine; Visit Provider Internal Medicine | DX: R94.31 Abnormal electrocardiogram [ECG] [EKG] (principal) | CPT/HCPCS: 93010 ==

== ENCOUNTER → 2023-07-09 16:00 | Outpatient (BNV) | payer BC, SELFPAY | PROVIDERS: Admitting Provider Physician Assistant; Emergency Provider Emergency Medicine; Visit Provider Physician Assistant | DX: I26.09 Other pulmonary embolism with acute cor pulmonale (principal); M04.1 Periodic fever syndromes; I95.1 Orthostatic hypotension | CPT/HCPCS: 99223; 99232; 99238 ==

== ENCOUNTER → 2023-07-09 16:00 | Outpatient (BNV) | payer BC, SELFPAY | PROVIDERS: Admitting Provider Physician Assistant; Emergency Provider Emergency Medicine; Visit Provider Internal Medicine Medical Oncology | DX: I26.99 Other pulmonary embolism without acute cor pulmonale (principal); R55 Syncope and collapse | CPT/HCPCS: 99222 ==

== ENCOUNTER → 2023-08-20 13:40 | Outpatient (BNV) | payer BC, SELFPAY | PROVIDERS: Visit Provider Internal Medicine Medical Oncology | DX: I26.99 Other pulmonary embolism without acute cor pulmonale (principal) | CPT/HCPCS: 99213 ==